=== PATIENT | female | born 1995 | race Hispanic/Latino ===

== ENCOUNTER 2017-12-13 23:29 | Observation (INO) | payer OTHER ==
[~2017-12-13] VITALS: Ht 157.5 cm; Wt 67.6 kg
[~2017-12-13 23:29] MED LIST: BACTRIM DS TAB1 EACH PO; DICLOFENAC SODI75 M2 PO; GUAIFENESIN-COD10 ML PO; PROVENTIL HFA6.7 GM INH; ROBITUSSIN COU237 M1 PO; TYLENOL EXTRA500 M2 PO; ZITHROMAX Z-PA250 M1 PO; ZITHROMAX250 M2 PO
[2017-12-14 05:57] VITALS: BP 113/62
== END 2017-12-14 09:15 ==
LOC: CBCO 23:29 → GNO 12-14 02:20
DX: O47.1 False labor at or after 37 completed weeks of gestation (principal); Z3A.38 38 weeks gestation of pregnancy
CPT/HCPCS: 81001; 87086; 96360; 96361; 96372; G0378; G0463; J2270; J7120

== ENCOUNTER 2017-12-18 06:00 | Inpatient (IN) | payer OTHER ==
[~2017-12-18] VITALS: Ht 157.5 cm; Wt 67.6 kg
[2017-12-18 06:18] VITALS: BP 107/68
--- NOTE | 2017-12-18 09:09 | History & Physical Pre-Op ---
General Information and HPI MD Statement: I have seen and personally examined WILLIAMS BOSWELL and documented this H&P. The patient is a 22 year old F who presented with a patient stated chief complaint of repeat section []. History of Present Illness: 22-year-old 4 para 3003 at 39 weeks gestation presents to childbirth center complaining of contractions over the weekend patient denies any contractions today any rupture of membranes she has had adequate care Allergies/Medications Allergies: Coded Allergies: No Known Allergies (10/06/17) Home Med list Acetaminophen (Tylenol Extra Strength) 500 MG TABLET 2 TAB PO TID PRN PAIN Albuterol Sulfate (Proventil Hfa) 6.7 GM HFA.AER.AD 1-2 PUFF INH Q6P PRN SOB Past History Medical History Neurological: NONE EENT: NONE Cardiovascular: NONE Respiratory: NONE Gastrointestinal: NONE Hepatic: NONE Renal: NONE Musculoskeletal: NONE Psychiatric: NONE Endocrine: NONE Blood Disorders: NONE Cancer(s): NONE COLLECTION SPECIALIST/Reproductive: NONE Isolation History: Standard Surgical History Pertinent Surgical History: N Past Family/Social History Psychosocial History Smoking Status: Never Smoked Review of Systems Review of Systems: Active headache negative GI upset negative contractions no bleeding no leakage of fluid no fever otherwise -13 point review of systems Exam & Diagnostic Data Last 24 Hrs of Vital Signs/I&O Vital Signs Date Time Temp Pulse Resp B/P B/P Pulse O2 O2 Flow FiO2 Mean Ox Delivery Rate 12/18 0618 107/68 Intake & Output 12/18 1600 08 0800 08 0000 Intake Total Output Total Balance Patient 149 lb Weight Physical Exam: She is a petite female in no apparent distress HEENT anicteric Lungs clear Heart S1-S2 Abdomen gravid estimated weight 3900 g closed Extremities +1 edema negative Homans Assessment/Plan Assessment/Plan: Assessment is term previous section 3 severe anemia Plan 2 units of packed red blood cells 2 g of Ancef section with appropriate backup of Methergine Hemabate balloon As Ranked By This Provider Problem List: 1.
--- NOTE | 2017-12-18 09:13 | Operative Report ---
Operative/Inv Procedure Report Surgery Date: 12/18/17 Name of Procedure: Repeat low flap transverse section lysis of adhesions Via Pfannenstiel skin incision Pre-Operative Diagnosis: Term 3 previous sections Post-Operative Diagnosis: Same macrosomia 9 cm uterine window adhesions Estimated Blood Loss: 750 Surgeon/Finance Specialist: Antonella Magdaleno MD And Dr. ANTHONY Anesthesia: block Operative/Procedure Note Note: Procedure note patient was taken the operating room placed supine position after adequate anesthesia patient placed in dorsolithotomy position the vagina was prepped draped sterile fashion patient tolerated placement of a Hernandez while she was returned supine position she had a hip wedge a timeout was performed patient received 1 unit of packed red blood cells 2 g of Ancef at this point the abdomen was prepped draped sterile fashion skin testing was found to be adequate for surgery and the skin was cut. There are no Pfannenstiel skin incision was carried down to rectus fascia rectus fascia was densely adherent it was dissected bluntly as well as sharply longitudinally the rectus sheath was opened at which point the membranes were visible there was no apparent uterine abdominal wall at this point the membranes were ruptured with an Allis cord presented the infant was delivered from vertex position the cord was doubly clamped and cut infant was handed to pediatricians waiting delivery room to aid in resuscitation center was delivered manually noted to be intact it was likely due to a dry laps as well as a horseshoe correct intravenous prescription intramyometrial Pitocin as well as Methergine was used for uterine contractility which was apparent the first layer the uterus was closed with running locking suture of 0 was imbricated running locking 0 suture of 0 as well interrupted figure of eights were used for hemostasis at this point Indio was applied after the abdomen and then irrigated copious amounts 1 sounds are clear the adhesions were so dense the ovaries and tubes were not visit visualized at this point the fascia was reapproximated using #1 sutures running locking suture in 2 sutures hemostasis was apparent subcutaneous tissue was Bovie coagulated the skin was reapproximated reyna at the end of the case the counts were correct the urine was clear mother and infant were transferred recovery room awake and alert mother was informed of the uterine window and advised not to have another . And if she does the patient should be delivered at 36 weeks Findings: Viable male with an occult cord clear fluid 9 cm uterine window upon opening the rectus muscle ovaries and tubes were not visible secondary to dense adhesions
[2017-12-18 14:55] LABS: ABSOLUTE BASOPHIL COUNT 0 /CUMM (0.0-0.2); ABSOLUTE EOSINOPHIL COUNT 0 /CUMM (0.0-0.7); ABSOLUTE LYMPH COUNT 0.9 /CUMM (1.2-3.4); ABSOLUTE MONOCYTE COUNT 0.4 /CUMM (0.10-0.60); BASOPHIL % 0.1 % (0.0-2.0); EOSINOPHIL % 0 % (0-5); HEMATOCRIT 30.8 % (37-47); MEAN CORPUSCULAR HGB 24.6 PG (27.0-31.0); MEAN CORPUSCULAR HGB CONC 31.9 G/DL (33.0-37.0); MEAN PLATELET VOLUME 11.1 FL (7.4-10.4); PLATELET COUNT 215 /CUMM (130-400); RBC DISTRIBUTION WIDTH 19.7 % (11.5-14.5); RED BLOOD CELL CT 3.99 /CUMM (4.20-5.40)
[2017-12-18 14:59] LABS: WHITE BLOOD CELL COUNT 13.2 /CUMM (4.8-10.8)
[2017-12-18 15:00] LABS: MEAN CORPUSCULAR VOLUME 77.1 FL (81.0-99.0)
[2017-12-18 15:11] LABS: GRANULOCYTE % 90.7 % (42.2-75.2)
[2017-12-19 09:18] LABS: ABSOLUTE BASOPHIL COUNT 0 /CUMM (0.0-0.2); ABSOLUTE EOSINOPHIL COUNT 0.1 /CUMM (0.0-0.7); ABSOLUTE GRANULOCYTE CT 6.3 /CUMM (1.4-6.5); ABSOLUTE LYMPH COUNT 2.3 /CUMM (1.2-3.4); ABSOLUTE MONOCYTE COUNT 0.6 /CUMM (0.10-0.60); BASOPHIL % 0.4 % (0.0-2.0); GRANULOCYTE % 67.4 % (42.2-75.2); MEAN CORPUSCULAR HGB 24.2 PG (27.0-31.0); MEAN CORPUSCULAR HGB CONC 31.5 G/DL (33.0-37.0); MEAN CORPUSCULAR VOLUME 76.9 FL (81.0-99.0); MEAN PLATELET VOLUME 9.6 FL (7.4-10.4); PLATELET COUNT 199 /CUMM (130-400); RBC DISTRIBUTION WIDTH 19.8 % (11.5-14.5); RED BLOOD CELL CT 3.35 /CUMM (4.20-5.40); WHITE BLOOD CELL COUNT 9.4 /CUMM (4.8-10.8)
[2017-12-19 09:22] LABS: HEMATOCRIT 25.8 % (37-47)
--- NOTE | 2017-12-19 10:58 | PN- Post Delivery/GYN ---
Subjective Subjective: NO COMPLAINTS UTERINE RUPTURE REVIEWED WITH PT Objective Last 24 Hrs of Vital Signs/I&O PER CHART Physical Exam: PE THIN HF IN NAD ABD SOFT NT INCISION CDI EXT -EDEMA Assessment/Plan Assessment/Plan ASSESS S/P C/S ANEMIA PLAN ADVANCE DIET
--- NOTE | 2017-12-20 08:00 | PN- Post Delivery/GYN ---
Subjective Subjective: No complaint Objective Last 24 Hrs of Vital Signs/I&O As per paper chart Physical Exam: T2 female HEENT anicteric Abdomen soft nontender Incision clean dry and intact Fundus firm nontender Lochia minimal Extremities +1 edema negative Homans Assessment/Plan Assessment/Plan Assessment is status post repeat section plan is for continued care, iron discharge in a.m.
[2017-12-20] MEDS ORDERED: PERCOCET 5-3251 EACH PO (09:16)
[2017-12-20] MEDS ORDERED: IBUPROFEN800 M1 PO (09:16)
--- NOTE | 2017-12-20 18:04 | ULTRASOUND REPORT ---
EXAMINATION: US TRIPLEX LOWER EXTREMITY, LEFT CLINICAL INFORMATION: Edema. Swelling. COMPARISON: None TECHNIQUE: Color-flow triplex imaging with spectral analysis and compression Doppler were performed on the lower extremity. FINDINGS: Respiratory variation, normal compression and augmented flow are noted throughout the lower extremity. The visualized common femoral vein, superficial femoral vein, profunda femoral vein, popliteal vein and midcalf peroneal and posterior tibial venous segments show no evidence of deep venous thrombosis. There is no Renner's cyst. IMPRESSION: No evidence of deep venous thrombosis involving the lower extremity.
== END 2017-12-21 12:10 | DRG 560 ==
LOC: GNO 06:00
PROVIDERS: Specialist
PROC: 30233N1 Transfusion of Nonautologous Red Blood Cells into Peripheral Vein, Percutaneous Approach (ICD-10-PCS; principal; 2017-12-18)
DX: O34.211 Maternal care for low transverse scar from previous cesarean delivery (principal); O99.89 Other specified diseases and conditions complicating pregnancy, childbirth and the puerperium; N85.8 Other specified noninflammatory disorders of uterus; Z3A.39 39 weeks gestation of pregnancy; Z37.0 Single live birth; N73.6 Female pelvic peritoneal adhesions (postinfective)
CPT/HCPCS: GNOS; 81001; 86920; 87086; J0131; J0690; J1200; J1650; J1885; J2210; J7120; P9016